=== PATIENT | female | born 1970 | race Caucasian/White ===

== ENCOUNTER 2024-08-24 18:39 | Emergency (ER) | payer OTHER ==
[~2024-08-24] VITALS: Ht 157.5 cm; Wt 67.1 kg
[2024-08-24 18:57] VITALS: TEMP 98.2
[2024-08-24] MEDS ORDERED: ASPIRIN 81 MG CHEW TAB PO ONE (19:15)
[2024-08-24 19:22] LABS: BASOPHILS % 0.1 % (0.0-1.0); EOSINOPHILS % 0.3 % (0.0-6.0); HEMATOCRIT 39.5 % (34.2-44.1); HEMOGLOBIN 12.3 g/dL (12.0-16.0); LYMPHOCYTES # (AUTO) 0.8 (1.0-3.2); LYMPHOCYTES % 8.3 % (18.0-39.1); MEAN CORPUSCULAR HEMOGLOBIN 31.8 pg (28-32); MEAN CORPUSCULAR HGB CONC 31.1 g/dL (31-35); MEAN CORPUSCULAR VOLUME 102.1 fL (81-99); MONOCYTES # (AUTO) 0.6 (0.2-0.8); MONOCYTES % 6.4 % (4.4-11.3); NEUTROPHILS # (AUTO) 8.5 (2.1-6.9); NEUTROPHILS % 84.7 % (38.7-80.0); PLATELET COUNT 245 x10e3/uL (140-360); RED BLOOD COUNT 3.87 x10e6/uL (3.6-5.1); WHITE BLOOD COUNT 10.05 x10e3/uL (4.8-10.8)
[2024-08-24 19:44] LABS: CALCIUM 9.7 mg/dL (8.4-10.2); CREATININE, SERUM 0.7 mg/dL (0.57-1.11)
[2024-08-24 19:50] LABS: TROPONIN I 0.009 ng/mL (0-0.300)
[2024-08-24 20:45] VITALS: PULSE 95; RESP 16; O2SAT 96
[2024-08-24] MEDS ORDERED: AZITHROMYCIN250 MG PO (21:00)
[2024-08-24] MEDS ORDERED: MEDROL4 M2 PO (21:00)
[2024-08-24] MEDS: METHYLPREDNISOLONE SOD SUCC 125 MG/2ML VIAL IV ONE (21:05)
== END 2024-08-24 21:39 | disposition home or self-care (01) ==
LOC: ER 21:00
DX: R06.02 Shortness of breath (principal); J40 Bronchitis, not specified as acute or chronic; R05.9 Cough, unspecified; M81.0 Age-related osteoporosis without current pathological fracture; Z98.84 Bariatric surgery status
CPT/HCPCS: 36415; 71046; 80048; 82550; 84484; 85025; 99283; J2919; 93005